=== PATIENT | male | born 1990 | race Caucasian/White ===

== ENCOUNTER 2020-08-16 10:35 | Outpatient (REF) | payer BC, SELFPAY ==
[2020-08-16 11:15] LABS: MANUAL DIFF FLAG NO
[2020-08-16 11:19] LABS: Basophils Percent Auto 0.5 % (0-2); Eosinophils Absolute Auto 0.1 X10*3/uL (0.0-0.4); Hematocrit 43.5 % (42-52); Hemoglobin 14.9 g/dl (14.0-18.0); Imm Gran Abs Auto 0.01 X10*3/uL (0.00-0.03); Imm Gran Pct Auto 0.2 % (0.0-0.4); Lymphocytes Absolute Auto 0.8 X10*3/uL (1.2-4.9); Lymphocytes Percent Auto 20.3 % (20-40); Mean Corpuscular HGB Conc 34.3 g/dl (31.0-36.0); Mean Corpuscular Hemoglobin 31.2 pg (27.0-33.0); Mean Platelet Volume 10.1 fL (9.4-12.4); Monocytes Absolute Auto 0.5 X10*3/uL (0.1-1.2); Monocytes Percent Auto 13.4 % (2-11); Neutrophils Absolute Auto 2.5 X10*3/uL (2.0-8.3); Neutrophils Percent Auto 62.6 % (45-73); Platelet Count 167 X10*3/uL (160-400); Red Blood Count 4.78 X10*6/uL (4.60-5.80); Red Cell Distribution Width 11.6 % (11.0-16.0)
[2020-08-16 11:43] LABS: Alanine Aminotransferase 30 U/L (0-40); Albumin Level 4.5 g/dL (3.5-5.0); Alkaline Phosphatase 117 U/L (39-117); Anion Gap 11 (12-20); Aspartate Amino Transferase 24 U/L (5-37); Bilirubin Total 0.5 mg/dL (0.0-1.0); Blood Urea Nitrogen 11 mg/dL (9-16); Calcium 9.1 mg/dL (8.4-10.2); Carbon Dioxide 30 mmol/L (22-29); Chloride 103 mmol/L (96-108); Cholesterol 198 mg/dL; Estimated Glomerular Filt Rate > 60; Glucose Random 94 mg/dL (60-115); Potassium 4.6 mmol/L (3.3-5.1); Sodium 139 mmol/L (135-145); Total Protein 7.1 g/dL (6.5-8.0)
[2020-08-16 12:10] LABS: Phenytoin Dilantin 21.7 ug/mL (10.0-20.0)
== END 2020-08-16 10:36 | disposition home or self-care (01) ==
LOC: HO.LAB 10:35
PROVIDERS: PCP Internal Medicine; Visit Provider Internal Medicine
DX: Z00.00 Encounter for general adult medical examination without abnormal findings (principal); G40.909 Epilepsy, unspecified, not intractable, without status epilepticus
CPT/HCPCS: 36415; 80053; 80185; 82465; 85025

== ENCOUNTER 2022-01-15 15:22 | Outpatient (REF) | payer BC, SELFPAY ==
[2022-01-15 15:31] LABS: MANUAL DIFF FLAG NO
[2022-01-15 16:13] LABS: Basophils Percent Auto 0.7 % (0-2); Eosinophils Absolute Auto 0.2 X10*3/uL (0.0-0.4); Eosinophils Percent Auto 4.4 % (0-4); Hematocrit 39.8 % (42.0-52.0); Hemoglobin 14.2 g/dl (14.0-18.0); Imm Gran Abs Auto 0.01 X10*3/uL (0.00-0.03); Imm Gran Pct Auto 0.2 % (0.0-0.4); Lymphocytes Absolute Auto 1.2 X10*3/uL (1.2-4.9); Lymphocytes Percent Auto 27.3 % (20-40); Mean Corpuscular HGB Conc 35.7 g/dl (31.0-36.0); Mean Corpuscular Hemoglobin 31.3 pg (27.0-33.0); Mean Corpuscular Volume 87.7 fL (80.0-98.0); Mean Platelet Volume 10.6 fL (9.4-12.4); Monocytes Absolute Auto 0.4 X10*3/uL (0.1-1.2); Monocytes Percent Auto 9.5 % (2-11); Neutrophils Absolute Auto 2.6 x10*3/uL (2.0-8.3); Neutrophils Percent Auto 57.9 % (45-73); Platelet Count 183 X10*3/uL (160-400); Red Blood Count 4.54 X10*6/uL (4.60-5.80); Red Cell Distribution Width 11.5 % (11.0-16.0); White Blood Count 4.5 X10*3/uL (4.8-10.8)
[2022-01-15 16:20] LABS: Alanine Aminotransferase 54 U/L (0-40); Albumin Level 4.4 g/dL (3.5-5.0); Alkaline Phosphatase 119 U/L (39-117); Anion Gap 14 (12-20); Aspartate Amino Transferase 43 U/L (5-37); Bilirubin Total 0.4 mg/dL (0.0-1.0); Blood Urea Nitrogen 11 mg/dL (9-16); Calcium 8.9 mg/dL (8.4-10.2); Carbon Dioxide 29 mmol/L (22-29); Chloride 100 mmol/L (96-108); Cholesterol 197 mg/dL; Estimated Glomerular Filt Rate > 60; Glucose Random 60 mg/dL (60-115); Potassium 4.1 mmol/L (3.3-5.1); Sodium 139 mmol/L (135-145)
[2022-01-15 16:23] LABS: Phenytoin Dilantin 15.5 ug/mL (10.0-20.0)
== END 2022-01-15 15:23 | disposition home or self-care (01) ==
LOC: HO.LAB 15:22
PROVIDERS: PCP Internal Medicine; Visit Provider Internal Medicine
DX: Z00.00 Encounter for general adult medical examination without abnormal findings (principal); Z79.899 Other long term (current) drug therapy; Z86.69 Personal history of other diseases of the nervous system and sense organs
CPT/HCPCS: 36415; 80053; 80185; 82465; 85025

== ENCOUNTER 2023-05-31 17:17 | Outpatient (REF) | payer BC, SELFPAY ==
[2023-05-31 17:28] LABS: MANUAL DIFF FLAG NO
[2023-05-31 17:48] LABS: Basophils Percent Auto 0.5 % (0-2); Eosinophils Absolute Auto 0.2 X10*3/uL (0.0-0.4); Eosinophils Percent Auto 3.3 % (0-4); Hematocrit 45.7 % (42.0-52.0); Hemoglobin 15.8 g/dl (14.0-18.0); Imm Gran Abs Auto 0.01 X10*3/uL (0.00-0.03); Imm Gran Pct Auto 0.2 % (0.0-0.4); Lymphocytes Absolute Auto 1.1 X10*3/uL (1.2-4.9); Lymphocytes Percent Auto 17.6 % (20-40); Mean Corpuscular HGB Conc 34.6 g/dl (31.0-36.0); Mean Corpuscular Hemoglobin 31.3 pg (27.0-33.0); Mean Corpuscular Volume 90.7 fL (80.0-98.0); Mean Platelet Volume 10.2 fL (9.4-12.4); Monocytes Absolute Auto 0.6 X10*3/uL (0.1-1.2); Monocytes Percent Auto 8.7 % (2-11); Neutrophils Absolute Auto 4.4 x10*3/uL (2.0-8.3); Neutrophils Percent Auto 69.7 % (45-73); Platelet Count 185 X10*3/uL (160-400); Red Blood Count 5.04 X10*6/uL (4.60-5.80); Red Cell Distribution Width 11.6 % (11.0-16.0); White Blood Count 6.4 X10*3/uL (4.8-10.8)
[2023-05-31 18:06] LABS: Phenytoin Dilantin 10.6 ug/mL (10.0-20.0)
[2023-05-31 18:10] LABS: Alanine Aminotransferase 33 U/L (0-40); Albumin Level 4.4 g/dL (3.5-5.0); Alkaline Phosphatase 112 U/L (39-117); Anion Gap 12 (12-20); Aspartate Amino Transferase 27 U/L (5-37); Bilirubin Total 0.3 mg/dL (0.0-1.0); Blood Urea Nitrogen 7 mg/dL (9-16); Calcium 9.2 mg/dL (8.4-10.2); Carbon Dioxide 29 mmol/L (22-29); Chloride 104 mmol/L (96-108); Estimated Glomerular Filt Rate > 60; Glucose Random 88 mg/dL (60-115); Sodium 141 mmol/L (135-145); Total Protein 7.4 g/dL (6.5-8.0)
== END 2023-05-31 17:18 | disposition home or self-care (01) ==
LOC: HO.LAB 17:17
PROVIDERS: PCP Internal Medicine; Visit Provider Internal Medicine
DX: R79.89 Other specified abnormal findings of blood chemistry (principal); D64.9 Anemia, unspecified; G40.909 Epilepsy, unspecified, not intractable, without status epilepticus; Z79.899 Other long term (current) drug therapy
CPT/HCPCS: 36415; 80053; 80185; 85025

== ENCOUNTER 2024-02-07 11:14 | Outpatient (REF) | payer BC, SELFPAY ==
[2024-02-07 13:29] LABS: MANUAL DIFF FLAG NO
[2024-02-07 13:44] LABS: Basophils Percent Auto 0.4 % (0-2); Eosinophils Absolute Auto 0.3 X10*3/uL (0.0-0.4); Eosinophils Percent Auto 4.8 % (0-4); Hematocrit 44.5 % (42.0-52.0); Hemoglobin 15.5 g/dl (14.0-18.0); Imm Gran Abs Auto 0.02 X10*3/uL (0.00-0.03); Imm Gran Pct Auto 0.3 % (0.0-0.4); Lymphocytes Absolute Auto 1.1 X10*3/uL (1.2-4.9); Lymphocytes Percent Auto 15.4 % (20-40); Mean Corpuscular HGB Conc 34.8 g/dl (31.0-36.0); Mean Corpuscular Hemoglobin 31.4 pg (27.0-33.0); Mean Corpuscular Volume 90.1 fL (80.0-98.0); Mean Platelet Volume 10.6 fL (9.4-12.4); Monocytes Absolute Auto 0.4 X10*3/uL (0.1-1.2); Monocytes Percent Auto 6.4 % (2-11); Neutrophils Percent Auto 72.7 % (45-73); Platelet Count 199 X10*3/uL (160-400); Red Blood Count 4.94 X10*6/uL (4.60-5.80); Red Cell Distribution Width 11.1 % (11.0-16.0); White Blood Count 6.8 X10*3/uL (4.8-10.8)
[2024-02-07 14:11] LABS: Alanine Aminotransferase 38 U/L (0-40); Albumin Level 4.1 g/dL (3.5-5.0); Alkaline Phosphatase 108 U/L (39-117); Anion Gap 12 (12-20); Aspartate Amino Transferase 31 U/L (5-37); Bilirubin Total 0.5 mg/dL (0.0-1.0); Blood Urea Nitrogen 11 mg/dL (9-16); Calcium 9.4 mg/dL (8.4-10.2); Carbon Dioxide 27 mmol/L (22-29); Chloride 104 mmol/L (96-108); Estimated Glomerular Filt Rate > 60; Glucose Random 92 mg/dL (60-115); Potassium 4.2 mmol/L (3.3-5.1); Sodium 139 mmol/L (135-145); Total Protein 7.4 g/dL (6.5-8.0)
[2024-02-07 14:12] LABS: Phenytoin Dilantin 12.7 ug/mL (10.0-20.0)
== END 2024-02-07 11:15 | disposition home or self-care (01) ==
LOC: HO.10HDL 11:14
PROVIDERS: Visit Provider Internal Medicine
DX: K52.89 Other specified noninfective gastroenteritis and colitis (principal); R19.7 Diarrhea, unspecified; R56.9 Unspecified convulsions
CPT/HCPCS: 36415; 80053; 80185; 85025

== ENCOUNTER 2024-02-08 13:41 | Outpatient (REF) | payer BC, SELFPAY ==
[2024-02-08 16:25] LABS: Adenovirus F 40/41 Not Detected (Not Detect.); Astrovirus Not Detected (Not Detect.); Campylobacter Not Detected (Not Detect.); Cryptosporidium Not Detected (Not Detect.); Cyclospora cayetanensis Not Detected (Not Detect.); E. coli EAEC Not Detected (Not Detect.); E. coli EPEC Not Detected (Not Detect.); E. coli ETEC Not Detected (Not Detect.); E. coli STEC Not Detected (Not Detect.); Entamoeba histolytica Not Detected (Not Detect.); Giardia lamblia Not Detected (Not Detect.); Plesiomonas shigelloides Not Detected (Not Detect.); Rotavirus A Not Detected (Not Detect.); Salmonella Not Detected (Not Detect.); Sapovirus Not Detected (Not Detect.); Shigella sp./EIEC Not Detected (Not Detect.); Vibrio Not Detected (Not Detect.); Vibrio Cholerae Not Detected (Not Detect.); Yersinia enterocolitica Not Detected (Not Detect.)
[2024-02-10 12:17] LABS: Norovirus Stool PCR NOT DETECTED
== END 2024-02-08 13:42 | disposition home or self-care (01) ==
LOC: HO.LNP 13:41
PROVIDERS: Visit Provider Internal Medicine
DX: R19.7 Diarrhea, unspecified (principal); R56.9 Unspecified convulsions
CPT/HCPCS: 87507

== ENCOUNTER 2024-04-18 15:26 | Outpatient (REF) | payer BC, SELFPAY ==
--- OUTSIDE RECORDS SUMMARY | 2024-04-18 15:29 | XMS_ITS | Continuity of Care Document ---
Author Organization [facility] ter Address [address] [place] [id number]- Care Team Providers Care Natural Resource Officer Name Role Phone Not on Staff, PCP Primary Care Physician Unavail able Encounter [facility] – [place] Date(s): 04/06/24 - 04/07/[address] [address]- Encounter Diagnosis Seizure disorder(Final) - 04/07/24 Confusion(Final) - 04/07/24 Discharge Disposition: A-D/C Home Attending Physician: Shahriar Byrne MD Admitting Physician: Vladimir Rivas MD Referring Physician: Not on Staff, Referring MD Encounter Type: Disch Obv Allergies, Adverse Reactions, Alerts No Known Allergies Immunizations Given and Recorded Vaccine Date Status Refusal Reason tetanus/diphtheria/pertussis, acel(Tdap) 02/24/13 Given Medications Dilantin Infatabs 50 mg oral tablet, chewable 150 mg, 3, tablet, By Mouth, 2 times a day, # 180 tablet, 0 Refills Start Date: 05/15/08 Stop Date: 06/14/08 Status: Ordered Quantity: 180.0 Unit: tablet Repeat number: 1 Ibuprofen 600 mg, By Mouth, 3 times a day, prn pain with food or milk/ no other NSAIDS, Refills 0, Acute, 05/31/19 4:11:00 PM EST Start Date: 05/31/19 Status: Ordered Repeat number: 1 levETIRAcetam 750 mg oral tablet 1 tablet = 750 mg, By Mouth, 2 times a day, # 180 tablet, 0 Refills, Maintenance, 04/07/24 1:12:00 AM EST, Tablet, Partial fill upon patient request if the prescription is for a schedule II opioid drug. Start Date: 04/07/24 Status: Ordered Quantity: 180.0 Unit: tablet Repeat number: 1 phenytoin 100 mg oral capsule, extended release 3 capsule = 300 mg, By Mouth, Daily at bedtime, # 90 capsule, 0 Refills, Maintenance, 04/07/24 1:11:00 AM EST, CR Capsule, Partial fill upon patient request if the prescription is for a schedule II opioid drug. Start Date: 04/07/24 Status: Ordered Quantity: 90.0 Unit: capsule Repeat number: 1 Problem List Condition Confirmation Course Effective Dates Status Health St atus Informant Localization-relate d epilepsy Confirmed Stable Active Underweight Confirmed Active Results Radiology Reports * Exam Date Time Procedure Performing Provider Status 04/06/24 8:59 PM Chest 2 Views Frontal and Lat Bev Hernandez; Love (Verified) Notes: (Chest 2 Views Frontal and Lat) Reason For Exam: seizures;Other: RESULT: Chest 2 Views Frontal and Lat Chest 2 Views Frontal and Lat Reason: Other:; seizures; Clinical Question(s): Pneumonia; Order Comment: COMPARISON: None. FINDINGS: LINES AND TUBES: None. LUNGS AND PLEURA: Clear lungs. Normal pulmonary vascularity. No pleural effusion. No pneumothorax. HEART, MEDIASTINUM AND PARISH: Heart is normal in size. Normal mediastinal and hilar contour. BONES AND SOFT TISSUES: No acute abnormality. IMPRESSION: No acute abnormality. WSN: [id number] Ordering Physician: Wai Quinn Dictated By: Pierre Dawn MD Dictated Date/Time: 04/06/24 10:10 p Reviewed By: Pierer Dawn MD Signed By: Pierre Dawn MD Signed Date/Time: 04/06/24 10:10 pm Transcribed By: LEONARDO Transcribed Date/Time: 04/06/24 10:10 pm * Exam Date Time Procedure Performing Provider Status 04/06/24 6:[address] Cervical Spine W/O Contrast Aminata Judd; Love (Verified) Notes: (CT Cervical Spine W/O Contrast) Reason For Exam: Neck trauma, dangerous injury mechanism;Trauma RESULT: CT Cervical Spine W/O Contrast CT Head/Brain W/O Contrast, CT Cervical Spine W/O Contrast INDICATION: Reason: Trauma; Clinical Question(s): Hematoma; Order Comment: TECHNIQUE: Noncontrast head CT using axial technique was reconstructed in axial and coronal planes.Noncontrast spiral CT through the cervical spine was formatted in 3 planes. Automatic tube modulation was used for the cervical spine and iterative dose reconstruction was used for both the head and cervical spine to optimize scan parameters and image quality. CTDIvol Body: 10.86 mGy, DLP Body: 509 mGy*cm. CTDIvol Head: 46.31 mGy, DLP Head: 834 mGy*cm. COMPARISON: 08/28/2022 FINDINGS: Food Handler View Findings, Lines and Tubes: None. BRAIN AND EXTRA-AXIAL SPACES: No parenchymal hemorrhage, midline shift, or mass effect. Guerra-white matter differentiation is wellpreserved. No acute infarct. Ventricles, sulci, and basilar cisterns are normal. No white matter lesions. No subarachnoid hemorrhage. No subdural or epidural collection. CALVARIUM, SKULL BASE, AND SOFT TISSUES: No fractures or suspicious bony lesions. Extensive maxillary sinus mucosal thickening with bilateral air-fluid levels. Dorsal thickening andmucous retention cysts in the left sphenoid sinus. Mastoid air cells are clear. Visualized orbits and globes are intact. The extracranial soft tissues are unremarkable. CERVICAL SPINE: No fracture. No acute osseous abnormalities. Normal alignment. No locked or perched facet. Intervertebral disc spaces and vertebral body heightsare preserved. OTHER BONES: No acute abnormality. CERVICAL SOFT TISSUES AND LUNG APICES: Normal soft tissues. Visualized lung apices are clear. IMPRESSION: No acute abnormality of the head or cervical spine. WSN: [id number] Ordering Physician: Wai Quinn Dictated By: Elfego Acosta MD Dictated Date/Time: 04/06/24 6:39 pm Reviewed By: Elfego Acosta MD Signed By: Elfego Acosta MD Signed Date/Time: 04/06/24 6:39 pm Transcribed By: LEONARDO Transcribed Date/Time: 04/06/24 6:34 pm * Exam Date Time Procedure Performing Provider Status 04/06/24 6:[address] Head/Brain W/O Contrast Lashon Judd; Auth (Verified) Notes: (CT Head/Brain W/O Contrast) Reason For Exam: Trauma RESULT: CT Head/Brain W/O Contrast CT Head/Brain W/O Contrast, CT Cervical Spine W/O Contrast INDICATION: Reason: Trauma; Clinical Question(s): Hematoma; Order Comment: TECHNIQUE: Noncontrast head CT using axial technique was reconstructed in axial and coronal planes.Noncontrast spiral CT through the cervical spine was formatted in 3 planes. Automatic tube modulation was used for the cervical spine and iterative dose reconstruction was used for both the head and cervical spine to optimize scan parameters and image quality. CTDIvol Body: 10.86 mGy, DLP Body: 509 mGy*cm. CTDIvol Head: 46.31 mGy, DLP Head: 834 mGy*cm. COMPARISON: 08/28/2022 FINDINGS: Food Handler View Findings, Lines and Tubes: None. BRAIN AND EXTRA-AXIAL SPACES: No parenchymal hemorrhage, midline shift, or mass effect. Guerra-white matter differentiation is wellpreserved. No acute infarct. Ventricles, sulci, and basilar cisterns are normal. No white matter lesions. No subarachnoid hemorrhage. No subdural or epidural collection. CALVARIUM, SKULL BASE, AND SOFT TISSUES: No fractures or suspicious bony lesions. Extensive maxillary sinus mucosal thickening with bilateral air-fluid levels. Dorsal thickening andmucous retention cysts in the left sphenoid sinus. Mastoid air cells are clear. Visualized orbits and globes are intact. The extracranial soft tissues are unremarkable. CERVICAL SPINE: No fracture. No acute osseous abnormalities. Normal alignment. No locked or perched facet. Intervertebral disc spaces and vertebral body heightsare preserved. OTHER BONES: No acute abnormality. CERVICAL SOFT TISSUES AND LUNG APICES: Normal soft tissues. Visualized lung apices are clear. IMPRESSION: No acute abnormality of the head or cervical spine. WSN: [id number] Ordering Physician: Wai Quinn Dictated By: Elfego Acosta MD Dictated Date/Time: 04/06/24 6:39 pm Reviewed By: Elfego Acosta MD Signed By: Elfego Acosta MD Signed Date/Time: 04/06/24 6:39 pm Transcribed By: LEONARDO Transcribed Date/Time: 04/06/24 6:34 pm Vital Signs Most recent to oldest [Reference Range]: 1 2 3 Height 181 cm (04/07/24 2:51 PM) 181 cm (04/07/24 10:11 AM) 181 cm (04/07/24 6:46 AM) Weight 60 kg (04/07/24 1:21 AM) Oxygen Saturation [94-100 %] 99 % (04/07/24 2:51 PM) 100 % (04/07/24 10:11 AM) 100 % (04/07/24 6:46 AM) Pulse Rate [55-90 bpm] 91 bpm *H* (04/07/24 2:51 PM) 66 bpm (04/07/24 10:11 AM) 58 bpm (04/07/24 6:46 AM) Body Mass Index [18.5-24.99 kg/m2] 18.31 kg/m2 *L* (04/07/24 1:21 AM) Blood Pressure [90-138/55-84 mm Hg] 126/71mm Hg (04/07/24 2:51 PM) 123/74mm Hg (04/07/24 10:11 AM) 125/76mm Hg (04/07/24 6:46 AM) Respiratory Rate [16-30 br/min] 16 br/min (04/07/24 2:51 PM) 16 br/min (04/07/24 12:20 PM) 19 br/min (04/07/24 10:11 AM) Temperature [96.8-100.4 DegF] 98.5 DegF (04/07/24 2:51 PM) 97.9 DegF (04/07/24 10:11 AM) 98.0 DegF (04/07/24 6:46 AM) Mode of Delivery (Oxygen) Room air (04/07/24 2:51 PM) Room air (04/07/24 10:11 AM) Room air (04/07/24 6:46 AM) Blood pressure sites Arm, right (04/07/24 2:51 PM) Arm, right (04/07/24 10:11 AM) Arm, right (04/07/24 6:46 AM) Temperature Route Oral (04/07/24 2:51 PM) Oral (04/07/24 10:11 AM) Oral (04/07/24 6:46 AM) Dry Weight 60 kg (04/07/24 1:21 AM) Weight Obtained Via Bed scale (04/07/24 1:21 AM) Dry Weight Obtained Via Bed scale (04/07/24 1:21 AM) Social History Social History Type Response Smoking Status Never (less than 100 in lifetime) entered on: 04/07/24 Sex Sex Representation Male (finding) Admission evaluation note * Shahriar Byrne MD: PERFORM Event Display: Admission Note Authored Date: [id number] Patient: ??PRESTON FRAGA ? Age:??33 Years?Sex:??Male?:??1990?? Chief Complaint/Reason for Consultation Seizure History of Present Illness 33 M PMH epilepsy presents for a breakthrough seizure. Per history provided by patient and family members, he was at his baseline mentation on 04/03, was home by himself?? on 04/04. When family went to visit him on 04/05, he was found altered with saliva and blood on his pillow. Patient denies recollection of events leading up to this incident. He denies headaches, cp, sob, palpitations, abdominal pain, nausea, vomiting, fevers or chills. Denies recent illnesses, diarrhea, dysuria or cough. He denies numbness/tingling, or weakness of extremities. He denies speech or swallowing difficulties at this time. On presentation, he was afebrile and hemodynamically stable. Per ER notes, he was minimally responsive at the time of arrival however he is currently at this neurologic baseline Dilantin and keppra levels were noted to be low, and patient reports being non compliant with medications. Review of Systems Negative except for the above. Objective Vital Signs?? Temperature: 97.9 DegF (04/07/24 10:11:00) Temperature Route: Oral (04/07/24 10:11:00) Pulse Rate: 66 bpm (04/07/24 10:11:00) Respiratory Rate: 16 br/min (04/07/24 12:20:00) Systolic Blood Pressure: 123 mm Hg (04/07/24 10:11:00) Diastolic Blood Pressure: 74 mm Hg (04/07/24 10:11:00) Blood pressure sites: Arm, right (04/07/24 10:11:00) Mean Arterial Pressure: 90 mm Hg (04/07/24 10:11:00) Pulse Pressure: 49 mm Hg (04/07/24 10:11:00) Oxygen Saturation: 100 % (04/07/24 10:11:00) Mode of Delivery (Oxygen): Room air (04/07/24 10:11:00) Early Warning Score: 2 (04/07/24 13:30:46) ? Intake/Output? No Data Available ? Anne Coma Scale [place] Coma Score: 15 (04/07/24 07:00:00) Motor Response-Adult: Obeys commands (04/07/24 07:00:00) Response Eye Opening: Spontaneously (04/07/24 07:00:00) Verbal Response-Adult: Oriented and converses (04/07/24 07:00:00) ? Mobility & Ambulation Level Mobility & Ambulation Level Ambulatory devices needed: None (04/07/24) ? Physical Exam Constitutional: Alert, in no distress. Mental Status: Oriented to person, place and time. Head: Normocephalic. Eyes: Pupils are equal, round and reactive to light. Extraocular muscles intact. Ear, Nose and Throat: Oropharynx clear, mucous membranes moist. Ears and nose without masses, lesions or deformities. Trachea midline. Neck: Supple, Full range of motion. Respiratory: Clear to auscultation. No wheezing, rales or rhonchi. Cardiovascular: S1 S2 regular. No murmurs, rubs or gallops. Gastrointestinal: Abdomen soft, non-tender, non-distended. Normal bowel sounds. No pulsatile mass. No hepatosplenomegaly. Genitourinary: No costovertebral angle tenderness. Neurologic: Cranial nerves II-XII grossly intact. No focal neurological deficits. Flexor plantar response. Moves all extremities spontaneously. Sensation intact bilaterally. Skin: No rashes or lesions. No petechiae or purpura.?? Musculoskeletal: No cyanosis or clubbing. No gross deformities. Normal range of motion. Heme/Lymphatics/Immun: Palpation of neck reveals no swelling or tenderness of neck nodes. Palpationof groin reveals no swelling or tenderness of groin nodes. Psychiatric: Normal mood and affect Assessment/Plan Diagnoses ? Seizure disorder (G40.909):?? Confusion (R41.0):?? U tox negative, no ethanol detected in serum. No infectious symptoms reported CT head and cervical spine are negative for acute abnormalities. Keppra and dilantin levels low, patient reports non compliance with medications He is back to neurologic baseline now, no focal neurologic deficits noted Restrat keppra and dilantin at home doses, discussed with neurology, can be discharged with outpatient follow up with patient's neurologist at [place]. ? Order Date/Time Order Action Order Name Order Detail 04/07/2024 14:17 Order Discharge Prescriptions ePrescribed, 04/07/24 14:17:00 EST 04/07/2024 13:30 Order Glucose POC (GLUCOSE POC) Routine, 04/07/24 13:29:00 EST, LAB 04/07/2024 09:46 Cancel Phenytoin 100 mg ER Capsule (Dilantin Capsule) 300 mg, By Mouth, Daily at bedtime 04/07/2024 09:46 Order Phenytoin 100 mg ER Capsule (Dilantin Capsule) 300 mg, By Mouth, Daily at bedtime 04/07/2024 09:45 Cancel Phenytoin 50 mg Chewable Tablet (Dilantin Tablet) 150 mg, By Mouth, 2 times a day 04/07/2024 09:37 Order Phenytoin 100 mg ER Capsule (Dilantin Capsule) 300 mg, By Mouth, Daily at bedtime 04/07/2024 09:36 Order Levetiracetam 250 mg Tablet (levETIRAcetam 750 mg oral tablet) 750 mg, tablet, By Mouth, 2 times a day 04/07/2024 09:35 Discontinue NPO No Exceptions, Start: now, Progress Diet: Per RN Stroke Swallow Screening Protocol, When: bowel sounds present, awake and alert, 04/07/24 0:12:00 EST 04/07/2024 09:34 Order Regular Diet Start: now, 04/07/24 9:34:00 EST 04/07/2024 09:32 Order Phenytoin 50 mg Chewable Tablet (Dilantin Tablet) 300 mg, By Mouth, Daily at bedtime 04/07/2024 07:46 Order Change Attending[facility] 04/07/24 7:46:00 EST 04/07/2024 07:18 Order Consult Neurology (Adult) [id number] Until Problem Resolved, Consult Type Seizure/Epilepsy, Reason: Breakthrough seizure, 04/07/24 7:18:00 EST ? Estimated Discharge Date ??04/07/24 ?? Important Psychosocial and Contextual Factors?? Important Psychosocial and Contextual factors -- No patient assets and stressors documented during this encounter ?? Justification for Hospitalization Breakthrough seizure ?? I certify that this patient requires hospitalization, there is a likelihood of a positive outcome, and that their placement is age appropriate. ??I have reviewed the Nursing Assessment, Admission Home Medication Assessment, and the Initial Evaluation of Risk to Self/Others. ?? Histories Allergies Allergies ?(Active and Proposed Allergies Only) NKA? (Severity: Unknown severity, Onset: Unknown) No Known Medication Allergies? (Severity: Unknown severity, Onset: Unknown) ? Past Medical History/Problem List Active Problems(2) Localization-related epilepsy Underweight ? Past Surgical History No surgery history documented. ? Social History Alcohol Details:??Use: Current. ??Frequency: 3-5 times per week. ??Type: Beer, Wine. Substance Abuse Details:??Use: Current. ??Type: Marijuana. ??Other: occas. Tobacco Details:??Use: Never (less than 100 in lifetime). ? Family History No Family History documented. ? Medications Home Medications Ibuprofen?600?Milligram?By Mouth?3 times a day?prn pain with food or milk/ no other NSAIDS levETIRAcetam (levETIRAcetam 750 mg oral tablet)?1?tab(s)?750?Milligram?By Mouth?2 times a day Phenytoin (Dilantin Infatabs 50 mg oral tablet, chewable)?150?Milligram?3?tab(s)?By Mouth?twice a day?for 30?Days Phenytoin (phenytoin 100 mg oral capsule, extended release)?3?capsule?300?Milligram?By Mouth?Daily at bedtime ? Inpatient Medications Medications (18) Active SCHEDULED: (5) Insulin Lispro 100 units/mL Inj (Insulin LISPRO Sliding Scale) ??2-10 units, Subcutaneous Injection, Every 6 hours Levetiracetam 250 mg Tablet (levETIRAcetam 750 mg oral tablet) ??750 mg, By Mouth, 2 times a day NaCl 0.9% Flush 3ml (NaCL 0.9% Flush) ??3 mL, IV Push, Every 8 hours Phenytoin 100 mg ER Capsule (Dilantin Capsule) ??300 mg, By Mouth, Daily at bedtime Phenytoin 50 mg Chewable Tablet (Dilantin Tablet) ??150 mg, By Mouth, 2 times a day CONTINUOUS: (0) PRN: (13) Acetaminophen 325 mg Tablet (Acetaminophen Tablet) ??650 mg, By Mouth, Every 4 hours Dextromethorphan-Guaifenesin 20 mg-200 mg/10 mL Liqu UD (Robitussin DM Liquid) ??10 mL, By Mouth, Every 4 hours Dextrose Inj Syringe (Dextrose 50% Inj Syringe (25Gm)) ??12.5 Gm, IV Push Slowly, Every 20 minutes Dextrose Inj Syringe (Dextrose 50% Inj Syringe (25Gm)) ??25 Gm, IV Push Slowly, Every 15 minutes Docusate Sodium 100 mg Capsule (Docusate Sodium Capsule) ??100 mg 1 capsule, By Mouth, 2 times a day Glucagon 1 mg Inj (Glucagon Inj) ??1 mg, Intramuscular, Once Glucose 40% Gel (15 Gm) (Glucose Gel) ??15 Gm, By Mouth, Every 20 minutes Glucose 40% Gel (15 Gm) (Glucose Gel) ??30 Gm, By Mouth, Every 20 minutes Melatonin 3 mg Tablet (Melatonin Tablet) ??3 mg, By Mouth, Daily at bedtime NaCl 0.9% Flush 3ml (NaCL 0.9% Flush) ??3 mL, IV Push, Every 8 hours Polyethylene Glycol 17 Gm Powder (MiraLax Powder) ??17 Gm 1 pack/packet, By Mouth, Daily Senna Tablet ??8.6 mg 1 tablet, By Mouth, 2 times a day Simethicone 80 mg Chewable Tablet (Simethicone Tablet) ??80 mg, Chew, 3 times a day ? Durable Medical Equipment Ambulatory devices needed: None (04/07/24) ? Results Recent Labs BLOOD COUNT & DIFF WBC 10.1 k/mm3 ()?? 04/06/2024 15:50 RBC 4.67 m/mm3 (Low)?? 04/06/2024 15:50 Hgb 15.0 Gm/dL ()?? 04/06/2024 15:50 Hct 42.0 % ()?? 04/06/2024 15:50 MCV 89.9 femtoliters ()?? 04/06/2024 15:50 MCH 32.1 pg ()?? 04/06/2024 15:50 MCHC 35.7 Gm/dL ()?? 04/06/2024 15:50 Platelet Count 205 k/mm3 ()?? 04/06/2024 15:50 RDW-SD 38.3 femtoliters ()?? 04/06/2024 15:50 MPV 10.6 femtoliters ()?? 04/06/2024 15:50 Nucleated RBC (Automated) 0.0 #/100 WBC'S ()?? 04/06/2024 15:50 Abs. NRBC 0.0 k/mm3 ()?? 04/06/2024 15:50 Abs. Neut 7.9 k/mm3 (High)?? 04/06/2024 15:50 Abs. Lymph 1.4 k/mm3 ()?? 04/06/2024 15:50 Abs. [place] 0.8 k/mm3 ()?? 04/06/2024 15:50 Abs. Eo 0.0 k/mm3 ()?? 04/06/2024 15:50 Abs. Baso 0.0 k/mm3 ()?? 04/06/2024 15:50 Neut % 77.5 % (High)?? 04/06/2024 15:50 Lymph % 13.4 % (Low)?? 04/06/2024 15:50 [place] % 8.2 % ()?? 04/06/2024 15:50 Eos % 0.3 % ()?? 04/06/2024 15:50 Baso % 0.3 % ()?? 04/06/2024 15:50 Imm Gran 0.3 % ()?? 04/06/2024 15:50 Abs. Imm Gran 0.0 k/mm3 ()?? 04/06/2024 15:50 ?? CARDIAC CK, Total 483 units/L (High)?? 04/06/2024 18:39 ?? CHEM GENERAL Sodium 142 mmol/L ()?? 04/06/2024 18:39 Potassium 3.8 mmol/L ()?? 04/06/2024 18:39 Chloride 102 mmol/L ()?? 04/06/2024 18:39 Bicarbonate Level 27 mmol/L ()?? 04/06/2024 18:39 Anion Gap 13 ()?? 04/06/2024 18:39 Glucose Level 91 mg/dL ()?? 04/06/2024 18:39 Glucose, POC 128 mg/dL (High)?? 04/07/2024 13:29 BUN 12 mg/dL ()?? 04/06/2024 18:39 Creatinine-Blood 0.77 mg/dL ()?? 04/06/2024 18:39 Estimated GFR Creatinine 120 ML/MIN/1.73 M2 ()?? 04/06/2024 18:39 Calcium 9.2 mg/dL ()?? 04/06/2024 18:39 Calcium, Ionized pH Corrected 1.23 mmol/L ()?? 04/06/2024 18:39 Magnesium 2.3 mg/dL ()?? 04/06/2024 18:39 Protein, Total 7.2 Gm/dL ()?? 04/06/2024 18:39 Albumin 4.3 Gm/dL ()?? 04/06/2024 18:39 AG Ratio 1.5 ()?? 04/06/2024 18:39 Alkaline Phosphatase 126 units/L ()?? 04/06/2024 18:39 Lipase 31 units/L ()?? 04/06/2024 15:50 AST (SGOT) 36 units/L ()?? 04/06/2024 18:39 ALT (SGPT) 63 units/L (High)?? 04/06/2024 18:39 Bilirubin, Total 0.3 mg/dL ()?? 04/06/2024 18:39 Lactate 1.4 mmol/L ()?? 04/06/2024 15:50 C-Reactive Protein 4.1 mg/dL (High)?? 04/06/2024 18:39 ?? ENDOCRINE/TUMOR MARKER TSH 2.29 uIU/mL ()?? 04/06/2024 18:39 ?? HEME OTHER Sed Rate 15 mm/hr ()?? 04/06/2024 15:50 Hold Blue Top SPECIMEN DISCARDED AFTER 4 HOURS. ()?? 04/06/2024 15:50 ?? TOXICOLOGY/TDM Ethanol, Serum or Plasma NONE DETECTED mg/dL ()?? 04/06/2024 18:39 Dilantin Level 3.6 mg/L (Low)?? 04/06/2024 15:50 Salicylate Level <0.3 mg/dL (Low)?? 04/06/2024 18:39 Barbiturate Screen, Urine NONE DETECTED ()?? 04/06/2024 21:50 Cannabinoid Screen, Urine NONE DETECTED ()?? 04/06/2024 21:50 Cocaine Metabolite Screen, Urine NONE DETECTED ()?? 04/06/2024 21:50 Benzodiazepine Screen, Urine NONE DETECTED ()?? 04/06/2024 21:50 Amphetamine Screen, Urine NONE DETECTED ()?? 04/06/2024 21:50 Opiate Screen, Urine NONE DETECTED ()?? 04/06/2024 21:50 Levetiracetam Level 2.50 mg/L ()?? 04/06/2024 18:39 ?? UA/URINALYSIS Appear/Color, Urine YELLOW ()?? 04/06/2024 21:50 Specific [place], Urine 1.026 ()?? 04/06/2024 21:50 pH, Urine 6.5 ()?? 04/06/2024 21:50 Albumin, Urine 1+ (Abnormal)?? 04/06/2024 21:50 Glucose, Urine NEGATIVE ()?? 04/06/2024 21:50 Ketones, Urine NEGATIVE ()?? 04/06/2024 21:50 Bilirubin, Urine NEGATIVE ()?? 04/06/2024 21:50 Hemoglobin, Urine NEGATIVE ()?? 04/06/2024 21:50 Nitrite, Urine NEGATIVE ()?? 04/06/2024 21:50 Leukocyte, Urine NEGATIVE ()?? 04/06/2024 21:50 Urobilinogen NORMAL mg/dL ()?? 04/06/2024 21:50 WBC's, Urine 2 /HPF ()?? 04/06/2024 21:50 RBC's, Urine 2 /HPF ()?? 04/06/2024 21:50 Bacteria SLIGHT HPF (Abnormal)?? 04/06/2024 21:50 Squamous Epith <1 /HPF ()?? 04/06/2024 21:50 Hyaline Cast 1 LPF ()?? 04/06/2024 21:50 Mucus SLIGHT /LPF ()?? 04/06/2024 21:50 Hold Urine Culture Testing available 48 hours from time of collection. ()?? 04/06/2024 21:50 ?? URINE OTHER Est Creatinine Clearance 113.64 mL/min ()?? 04/07/2024 03:22 ?? VIROLOGY Adenovirus by PCR NEGATIVE ()?? 04/06/2024 19:07 Coronavirus 229E by PCR (not COVID-19) NEGATIVE ()?? 04/06/2024 19:07 Coronavirus HKU1 by PCR (not COVID-19) NEGATIVE ()?? 04/06/2024 19:07 Coronavirus NL63 by PCR (not COVID-19) NEGATIVE ()?? 04/06/2024 19:07 Coronavirus OC43 by PCR (not COVID-19) NEGATIVE ()?? 04/06/2024 19:07 Human Metapneumovirus by PCR NEGATIVE ()?? 04/06/2024 19:07 Rhinovirus/Enterovirus by PCR NEGATIVE ()?? 04/06/2024 19:07 Influenza A by PCR NEGATIVE ()?? 04/06/2024 19:07 Influenza B by PCR NEGATIVE ()?? 04/06/2024 19:07 Parainfluenza 1 by PCR NEGATIVE ()?? 04/06/2024 19:07 Parainfluenza 2 by PCR NEGATIVE ()?? 04/06/2024 19:07 Parainfluenza 3 by PCR NEGATIVE ()?? 04/06/2024 19:07 Parainfluenza 4 by PCR NEGATIVE ()?? 04/06/2024 19:07 RSV by PCR NEGATIVE ()?? 04/06/2024 19:07 Bordetella Pertussis by PCR NEGATIVE ()?? 04/06/2024 19:07 Chlamydophila Pneumoniae by PCR NEGATIVE ()?? 04/06/2024 19:07 Mycoplasma Pneumoniae by PCR NEGATIVE ()?? 04/06/2024 19:07 COVID-19 (SARS-CoV-2) by PCR NEGATIVE ()?? 04/06/2024 19:07 Bordetella Parapertussis by PCR NEGATIVE ()?? 04/06/2024 19:07 ? Urinalysis Albumin, Urine: 1+ Abnormal (21:50) Appear/Color, Urine: YELLOW (21:50) Bacteria: SLIGHT Abnormal (21:50) Bilirubin, Urine: NEGATIVE (21:50) Est Creatinine Clearance: 113.64 mL/min (03:22) Glucose, Urine: NEGATIVE (21:50) Hemoglobin, Urine: NEGATIVE (21:50) Hold Urine Culture: Testing available 48 hours from time of collection. (21:50) Hyaline Cast: 1 LPF (21:50) Ketones, Urine: NEGATIVE (21:50) Leukocyte, Urine: NEGATIVE (21:50) Mucus: SLIGHT (21:50) Nitrite, Urine: NEGATIVE (21:50) pH, Urine: 6.5 (21:50) RBC's, Urine: 2 /HPF (21:50) Specific [place], Urine: 1.026 (21:50) Squamous Epith: <1 (21:50) Urobilinogen: NORMAL (21:50) WBC's, Urine: 2 /HPF (21:50) ?? Microbiology ?? Respiratory Pathogen PCR with COVID-19?? Completed?? Source: Nasal Body Site: Nose Collected Dt/Tm: 04/06/2024 17:06 Last Updated Dt/Tm: 04/06/2024 21:48 ? Cardiology Labs CK, Total:??483 units/L??High (04/06/24 18:39:00) ?? Blood Gases?? No qualifying data available. ? EKG study * Event Display: ECG 12-Lead Authored Date: Please click on pdf link to open report * Event Display: ECG 12-Lead Authored Date: [id number] Ventricular Rate: 59 BPM Atrial Rate: 59 BPM P-R Interval: 120 ms QRS Duration: 76 ms Q-T Interval: 402 ms QTC Calculation(Bazett): 397 ms P [place]: 25 degrees R [place]: 16 degrees T [place]: 28 degrees Sinus bradycardia with sinus arrhythmia Otherwise normal ECG When compared with ECG of 18-Aug-2016 13:48, No significant change was found Confirmed by JOSHUA VILLANUEVA MD ([id number]) on 04/07/2024 9:43:30 AM [place] * Christelle Howe: PERFORM Event Display: [facility] Authored Date: [id number] Patient: ??PRESTON FRAGA ? Age:??33 Years?Sex:??Male?:??1990? [facility] ?? Date and Time: 04/07/2024? 17:46 o'clock ?? To whom it may concern: ?? Mr. Preston Fraga??was hospitalized at [facility] from??04/06/2024 until??04/07/2024. Please reach out with any questions or concerns. ?? Christelle Gamboa PA-C [facility] Medicine ?? * Cory Olmos: PERFORM, SIGN, VERIFY, SIGN, MODIFY, SIGN Event Display: [facility] Authored Date: [id number] Patient: PRESTON FRAGA Age: 33 years Sex: Male : 1990 Associated Diagnoses: None Author: Cory Olmos Findings Discharge instructions explained to patient and patient verbalized understanding. Prescriptions andfollow up instructions reviewed, and patient verbalized understanding. Importance of taking medications as prescribed explained to patient, patient verbalized understanding. IV access removed. Patient denies pain. All belongings gathered and taken with patient. Patient left unit via ambulation to main lobby. Discharge Information Case Management Discharge Plan : Case Management Discharge Plan Data 04/07/2024 17:09 EST Discharge Level of Care at Discharge Home/Senior Living/Foster Care * Digna Richard RN: PERFORM, SIGN, VERIFY, MODIFY, SIGN Event Display: Progress Note Hospital Authored Date: Patient: PRESTON FRAGA Age: 33 years Sex: Male : 1990 Associated Diagnoses: None Author: Digna Richard RN Findings Narrative/Incidental Pt arrived to [facility] via stretcher around 0100, ambulated to bed with stand by assist. Appears tired, unsteady on his feet, wobbly feet and generally weak. Pt A+Ox2-3, disoriented on the date, knows itsDecember, doesn't know what day it is. Pt calm, soft voice. Pt denies dizziness or lightheadedness.Denies any pain, nausea, vomiting, SOB or cough. Telemetry: SR with HR in 60's. Little diaphoretic.POC glucose 93. Initiated CIWA and at 7. Reports consuming alcoholic drinks 3-4 times/week, 3-4 drinks in one occasion. Pt denies dysuria. Reports last BM 2 days ago, ?. Passed bedside swallow test. Pt's girlfriend at bedside, states pt doesn't take his anti-seizure mily as prescribed, but takes all pills at bedtime at once (if he takes his meds). Pt oriented to call joseph system and bed mechanics. Seizure precautions in place. Bed alarm on.. Consult note * Karl VARGAS, Jhon Cortez: PERFORM Event Display: Consultation Note Authored Date: Patient: ??PRESTON FRAGA ? Age:??33 Years?Sex:??Male?:??1990?? History of Present Illness Patient is a 33-year-old male with history of??epilepsy on??phenytoin and levetiracetam??followed by Dr. Vasquez, neurologist in??[place]??who presented with??breakthrough seizures.?? Levetiracetam and phenytoin??levels for both??low at??3.3 and??3.6 respectively. ?? CT head??and cervical spine 04/06/2024??No acute abnormality of the head or cervical spine. Review of Systems as per [facility] Physical Exam Vitals & Measurements T:??97.9?F?? HR:??66??(Peripheral)?? RR:??19?? BP:??123/74?? SpO2:??100%?? HT:??181??cm?? WT:??60??kg?? BMI:??18.31?? Constitutional: Sitting comfortably in the room in no acute distress. Good nutritional status. Appears stated age.?? Psych: Calm and cooperative. Maintains good eye contact. Good insight Skin: Warm and dry. No rashes, lesions or ulcers Eyes: [address] conjunctiva, no ptosis. Sclera anicteric. PERRLA CV: RRR Resp: Lungs clear to auscultation bilaterally?? MSK: No swelling or tenderness of the joints, neck supple. No clubbing, cyanosis or edema of the extremities ?? Neurologic Examination ?? Mental Status: Alert with fluent and appropriate language. No neglect or left/right confusion. Attention, registration and recall intact. Fund of knowledge good.? Cranial Nerves:Visual [place] full. EOMI with no nystagmus or diplopia. Facial sensation intact. Face activates symmetrically and tongue protrudes midline. Hearing is intact to conversation. No weakness in?? trapezius muscles.? Motor: Normal muscle bulk and tone throughout. No adventitious movements. No pronator drift or orbiting. Symmetric rapid movements. Strength 5/5 to manual muscle testing. ?? Reflexes: 2+ at bilateral biceps, triceps, brachioradialis, patella and ankle. Plantar response flexor bilaterally ?? Sensory: Sensation intact to light touch. ?? Coordination: Finger to nose??testing within normal limits ?? Gait:??deferred ?? Assessment/Plan Assessment:??Medically refractory epilepsy on??phenytoin and levetiracetam.??Reviewing??yesterday'snotes??and talking to patient's family??he appears much??improved??at this time.??Given??the low phenytoin and levetiracetam levels??I suspect??noncompliance??as the etiology for the breakthrough seizures.??Would recommend continuing on??the current doses of levetiracetam??and phenytoin.??Per patient??he is on??750 mg??levetiracetam twice daily??as well as??phenytoin 200 mg in the morning and 300mg in the evening.??Neurologic testing needed at this time.??Would recommend follow-up with ??Christina of??[place] neurology.??Neurology signing off. ? Problem List/Past Medical History Ongoing Localization-related epilepsy Underweight Procedure/Surgical History No qualifying data available. Home Medications Ibuprofen: 600 mg, By Mouth, 3 times a day, prn pain with food or milk/ no other NSAIDS levETIRAcetam: 750 mg = 1 tablet, By Mouth, 2 times a day Phenytoin: 150 mg = 3 tablet, By Mouth, 2 times a day Phenytoin: 300 mg = 3 capsule, By Mouth, Daily at bedtime Allergies NKA No Known Medication Allergies Social History Alcohol Use: Current. Frequency: 3-5 times per week. Type: Beer, Wine. Substance Abuse Use: Current. Type: Marijuana. Other: occas. Tobacco Use: Never (less than 100 in lifetime). Family History No family history recorded. Lab Results Test Name Test Result Date/Time WBC 10.1 k/mm3 04/06/2024 15:50 EST RBC 4.67 m/mm3 04/06/2024 15:50 EST Hgb 15.0 Gm/dL 04/06/2024 15:50 EST Hct 42.0 % 04/06/2024 15:50 EST MCV 89.9 femtoliters 04/06/2024 15:50 EST MCH 32.1 pg 04/06/2024 15:50 EST MCHC 35.7 Gm/dL 04/06/2024 15:50 EST Platelet Count 205 k/mm3 04/06/2024 15:50 EST RDW-SD 38.3 femtoliters 04/06/2024 15:50 EST MPV 10.6 femtoliters 04/06/2024 15:50 EST Nucleated RBC (Automated) 0.0 #/100 WBC'S 04/06/2024 15:50 EST Abs. NRBC 0.0 k/mm3 04/06/2024 15:50 EST Abs. Neut 7.9 k/mm3 04/06/2024 15:50 EST Abs. Lymph 1.4 k/mm3 04/06/2024 15:50 EST Abs. [place]vert 0.8 k/mm3 04/06/2024 15:50 EST Abs. Eo 0.0 k/mm3 04/06/2024 15:50 EST Abs. Baso 0.0 k/mm3 04/06/2024 15:50 EST Neut % 77.5 % 04/06/2024 15:50 EST Lymph % 13.4 % 04/06/2024 15:50 EST Calvert % 8.2 % 04/06/2024 15:50 EST Eos % 0.3 % 04/06/2024 15:50 EST Baso % 0.3 % 04/06/2024 15:50 EST Imm Gran 0.3 % 04/06/2024 15:50 EST Abs. Imm Gran 0.0 k/mm3 04/06/2024 15:50 EST Sodium 142 mmol/L 04/06/2024 18:39 EST Potassium 3.8 mmol/L 04/06/2024 18:39 EST Chloride 102 mmol/L 04/06/2024 18:39 EST Bicarbonate Level 27 mmol/L 04/06/2024 18:39 EST Anion Gap 13 04/06/2024 18:39 EST Glucose Level 91 mg/dL 04/06/2024 18:39 EST BUN 12 mg/dL 04/06/2024 18:39 EST Creatinine-Blood 0.77 mg/dL 04/06/2024 18:39 EST Estimated GFR Creatinine 120 ML/MIN/1.73 M2 04/06/2024 18:39 EST Calcium 9.2 mg/dL 04/06/2024 18:39 EST Calcium, Ionized pH Corrected 1.23 mmol/L 04/06/2024 18:39 EST Magnesium 2.3 mg/dL 04/06/2024 18:39 EST Protein, Total 7.2 Gm/dL 04/06/2024 18:39 EST Albumin 4.3 Gm/dL 04/06/2024 18:39 EST AG Ratio 1.5 04/06/2024 18:39 EST Alkaline Phosphatase 126 units/L 04/06/2024 18:39 EST AST (SGOT) 36 units/L 04/06/2024 18:39 EST ALT (SGPT) 63 units/L 04/06/2024 18:39 EST Bilirubin, Total 0.3 mg/dL 04/06/2024 18:39 EST C-Reactive Protein 4.1 mg/dL 04/06/2024 18:39 EST Ethanol, Serum or Plasma NONE DETECTED 04/06/2024 18:39 EST Salicylate Level <0.3 mg/dL 04/06/2024 18:39 EST Barbiturate Screen, Urine NONE DETECTED 04/06/2024 21:50 EST Cannabinoid Screen, Urine NONE DETECTED 04/06/2024 21:50 EST Cocaine Metabolite Screen, Urine NONE DETECTED 04/06/2024 21:50 EST Benzodiazepine Screen, Urine NONE DETECTED 04/06/2024 21:50 EST Amphetamine Screen, Urine NONE DETECTED 04/06/2024 21:50 EST Opiate Screen, Urine NONE DETECTED 04/06/2024 21:50 EST Levetiracetam Level 2.50 mg/L 04/06/2024 18:39 EST Note * Cory Olmos: PERFORM Event Display: Discharge/Transfer Note Hospital Authored Date: [id number] Nursing Discharge Note Entered On: 04/07/2024 17:18 EST Performed On: 04/07/2024 17:09 EST by Cory Olmos Nursing Discharge Note 2 Discharge Time : 04/07/2024 17:09 EST Discharge Level of Care at Discharge : Home/Senior Living/Foster Care Patient Left Unit Via : Ambulatory Patient Accompanied Off Unit with : Responsible adult DC Instructions Provided & Signed by Pt : Yes Patient Understands D/C Instructions : Yes Patient Instructions Discharge Signed : Yes Did Pt have Specialty Bed or Wound Vac : No Cory Olmos - 04/07/2024 17:18 EST * Caty VARGAS, Shahriar: PERFORM Event Display: Discharge/Transfer Note Hospital Authored Date: [id number] Patient: ??PRESTON FRAGA ? Age:??33 Years?Sex:??Male?:??1990?? Patient Information Discharge Location: B Primary Care Physician: Not on Staff, PCP Admit Date/Time: 04/06/2024 13:13 Discharge Disposition Discharge Disposition: Home: No Services Discharge Diagnosis Seizure disorder (G40.909) Confusion (R41.0) _ Discharge Medications Ibuprofen?600?Milligram?By Mouth?3 times a day?prn pain with food or milk/ no other NSAIDS levETIRAcetam (levETIRAcetam 750 mg oral tablet)?1?tab(s)?750?Milligram?By Mouth?2 times a day Phenytoin (Dilantin Infatabs 50 mg oral tablet, chewable)?150?Milligram?3?tab(s)?By Mouth?twice a day?for 30?Days Phenytoin (phenytoin 100 mg oral capsule, extended release)?3?capsule?300?Milligram?By Mouth?Daily at bedtime ? Allergies Allergies ?(Active and Proposed Allergies Only) NKA? (Severity: Unknown severity, Onset: Unknown) No Known Medication Allergies? (Severity: Unknown severity, Onset: Unknown) ? PCP Follow-Up/Heads-Up F/u for breakthrough seizure, non compliance with meds. Objective Assessment and Plan Seizure disorder (G40.909):?? Confusion (R41.0):?? U tox negative, no ethanol detected in serum. No infectious symptoms reported CT head and cervical spine are negative for acute abnormalities. Keppra and dilantin levels low, patient reports non compliance with medications He is back to neurologic baseline now, no focal neurologic deficits noted Restrat keppra and dilantin at home doses, discussed with neurology, can be discharged with outpatient follow up with patient's neurologist at [place]. ? Vital Signs?? Temperature: 98.5 DegF (04/07/24 14:51:00) Temperature Route: Oral (04/07/24 14:51:00) Pulse Rate:??91 bpm??High (04/07/24 14:51:00) Respiratory Rate: 16 br/min (04/07/24 14:51:00) Systolic Blood Pressure: 126 mm Hg (04/07/24 14:51:00) Diastolic Blood Pressure: 71 mm Hg (04/07/24 14:51:00) Blood pressure sites: Arm, right (04/07/24 14:51:00) Mean Arterial Pressure: 89 mm Hg (04/07/24 14:51:00) Pulse Pressure: 55 mm Hg (04/07/24 14:51:00) Oxygen Saturation: 99 % (04/07/24 14:51:00) Mode of Delivery (Oxygen): Room air (04/07/24 14:51:00) Early Warning Score: 0 (04/07/24 14:55:21) ? Mobility & Ambulation Level Mobility & Ambulation Level Ambulatory devices needed: None (04/07/24) ?? Therapeutic Activity Therapeutic Activities/Mobility/Balance?? No qualifying data available. ?? . Physical Exam Constitutional: Alert, in no distress. Mental Status: Oriented to person, place and time. Head: Normocephalic. Eyes: Pupils are equal, round and reactive to light. Extraocular muscles intact. Ear, Nose and Throat: Oropharynx clear, mucous membranes moist. Ears and nose without masses, lesions or deformities. Trachea midline. Neck: Supple, Full range of motion. Respiratory: Clear to auscultation. No wheezing, rales or rhonchi. Cardiovascular: S1 S2 regular. No murmurs, rubs or gallops. Gastrointestinal: Abdomen soft, non-tender, non-distended. Normal bowel sounds. No pulsatile mass. No hepatosplenomegaly. Genitourinary: No costovertebral angle tenderness. Neurologic: Cranial nerves II-XII grossly intact. No focal neurological deficits. Flexor plantar response. Moves all extremities spontaneously. Sensation intact bilaterally. Skin: No rashes or lesions. No petechiae or purpura.?? Musculoskeletal: No cyanosis or clubbing. No gross deformities. Normal range of motion. Heme/Lymphatics/Immun: Palpation of neck reveals no swelling or tenderness of neck nodes. Palpationof groin reveals no swelling or tenderness of groin nodes. Psychiatric: Normal mood and affect [facility] Neurology Pending Results Add On Lab Order ordered on 04/06/2024 Add On Lab Order ordered on 04/06/2024 Blood Culture ordered on 04/06/2024 Blood Culture #2 ordered on 04/06/2024 Fentanyl Level ordered on 04/06/2024 Follow-Up Appointments Added Follow Up ?Time Frame ?Comments Not on Staff, PCP?1 week: call to discuss follow up visit Patient Instructions Please take seizure medications as prescribed without missing doses Follow up with your outpatient neurologist at [place] after discharge Post Discharge Care Discharge ?04/07/24 14:17:00 EST ?Order Comment:?? Discharge Prescriptions ?ePrescribed, 04/07/24 14:17:00 EST ?Order Comment:?? Home Health Face to Face ^HomeHealthFTF Results Discharge Labs BLOOD COUNT & DIFF WBC 10.1 k/mm3 ()?? 04/06/2024 15:50 RBC 4.67 m/mm3 (Low)?? 04/06/2024 15:50 Hgb 15.0 Gm/dL ()?? 04/06/2024 15:50 Hct 42.0 % ()?? 04/06/2024 15:50 MCV 89.9 femtoliters ()?? 04/06/2024 15:50 MCH 32.1 pg ()?? 04/06/2024 15:50 MCHC 35.7 Gm/dL ()?? 04/06/2024 15:50 Platelet Count 205 k/mm3 ()?? 04/06/2024 15:50 RDW-SD 38.3 femtoliters ()?? 04/06/2024 15:50 MPV 10.6 femtoliters ()?? 04/06/2024 15:50 Nucleated RBC (Automated) 0.0 #/100 WBC'S ()?? 04/06/2024 15:50 Abs. NRBC 0.0 k/mm3 ()?? 04/06/2024 15:50 Abs. Neut 7.9 k/mm3 (High)?? 04/06/2024 15:50 Abs. Lymph 1.4 k/mm3 ()?? 04/06/2024 15:50 Abs. [place]vert 0.8 k/mm3 ()?? 04/06/2024 15:50 Abs. Eo 0.0 k/mm3 ()?? 04/06/2024 15:50 Abs. Baso 0.0 k/mm3 ()?? 04/06/2024 15:50 Neut % 77.5 % (High)?? 04/06/2024 15:50 Lymph % 13.4 % (Low)?? 04/06/2024 15:50 Calvert % 8.2 % ()?? 04/06/2024 15:50 Eos % 0.3 % ()?? 04/06/2024 15:50 Baso % 0.3 % ()?? 04/06/2024 15:50 Imm Gran 0.3 % ()?? 04/06/2024 15:50 Abs. Imm Gran 0.0 k/mm3 ()?? 04/06/2024 15:50 ?? CARDIAC CK, Total 483 units/L (High)?? 04/06/2024 18:39 ? CHEM GENERAL Sodium 142 mmol/L ()?? 04/06/2024 18:39 Potassium 3.8 mmol/L ()?? 04/06/2024 18:39 Chloride 102 mmol/L ()?? 04/06/2024 18:39 Bicarbonate Level 27 mmol/L ()?? 04/06/2024 18:39 Anion Gap 13 ()?? 04/06/2024 18:39 Glucose Level 91 mg/dL ()?? 04/06/2024 18:39 Glucose, POC 128 mg/dL (High)?? 04/07/2024 13:29 BUN 12 mg/dL ()?? 04/06/2024 18:39 Creatinine-Blood 0.77 mg/dL ()?? 04/06/2024 18:39 Estimated GFR Creatinine 120 ML/MIN/1.73 M2 ()?? 04/06/2024 18:39 Calcium 9.2 mg/dL ()?? 04/06/2024 18:39 Calcium, Ionized pH Corrected 1.23 mmol/L ()?? 04/06/2024 18:39 Magnesium 2.3 mg/dL ()?? 04/06/2024 18:39 Protein, Total 7.2 Gm/dL ()?? 04/06/2024 18:39 Albumin 4.3 Gm/dL ()?? 04/06/2024 18:39 AG Ratio 1.5 ()?? 04/06/2024 18:39 Alkaline Phosphatase 126 units/L ()?? 04/06/2024 18:39 Lipase 31 units/L ()?? 04/06/2024 15:50 AST (SGOT) 36 units/L ()?? 04/06/2024 18:39 ALT (SGPT) 63 units/L (High)?? 04/06/2024 18:39 Bilirubin, Total 0.3 mg/dL ()?? 04/06/2024 18:39 Lactate 1.4 mmol/L ()?? 04/06/2024 15:50 C-Reactive Protein 4.1 mg/dL (High)?? 04/06/2024 18:39 ? ENDOCRINE/TUMOR MARKER TSH 2.29 uIU/mL ()?? 04/06/2024 18:39 ? HEME OTHER Sed Rate 15 mm/hr ()?? 04/06/2024 15:50 Hold Blue Top SPECIMEN DISCARDED AFTER 4 HOURS. ()?? 04/06/2024 15:50 ?? MISC. CHEMISTRY Hold Green Top SPECIMEN DISCARDED AFTER 1 WEEK ()?? 04/06/2024 18:39 ? TOXICOLOGY/TDM Ethanol, Serum or Plasma NONE DETECTED mg/dL ()?? 04/06/2024 18:39 Dilantin Level 3.6 mg/L (Low)?? 04/06/2024 15:50 Salicylate Level <0.3 mg/dL (Low)?? 04/06/2024 18:39 Barbiturate Screen, Urine NONE DETECTED ()?? 04/06/2024 21:50 Cannabinoid Screen, Urine NONE DETECTED ()?? 04/06/2024 21:50 Cocaine Metabolite Screen, Urine NONE DETECTED ()?? 04/06/2024 21:50 Benzodiazepine Screen, Urine NONE DETECTED ()?? 04/06/2024 21:50 Amphetamine Screen, Urine NONE DETECTED ()?? 04/06/2024 21:50 Opiate Screen, Urine NONE DETECTED ()?? 04/06/2024 21:50 Levetiracetam Level 2.50 mg/L ()?? 04/06/2024 18:39 ?? UA/URINALYSIS Appear/Color, Urine YELLOW ()?? 04/06/2024 21:50 Specific [place], Urine 1.026 ()?? 04/06/2024 21:50 pH, Urine 6.5 ()?? 04/06/2024 21:50 Albumin, Urine 1+ (Abnormal)?? 04/06/2024 21:50 Glucose, Urine NEGATIVE ()?? 04/06/2024 21:50 Ketones, Urine NEGATIVE ()?? 04/06/2024 21:50 Bilirubin, Urine NEGATIVE ()?? 04/06/2024 21:50 Hemoglobin, Urine NEGATIVE ()?? 04/06/2024 21:50 Nitrite, Urine NEGATIVE ()?? 04/06/2024 21:50 Leukocyte, Urine NEGATIVE ()?? 04/06/2024 21:50 Urobilinogen NORMAL mg/dL ()?? 04/06/2024 21:50 WBC's, Urine 2 /HPF ()?? 04/06/2024 21:50 RBC's, Urine 2 /HPF ()?? 04/06/2024 21:50 Bacteria SLIGHT HPF (Abnormal)?? 04/06/2024 21:50 Squamous Epith <1 /HPF ()?? 04/06/2024 21:50 Hyaline Cast 1 LPF ()?? 04/06/2024 21:50 Mucus SLIGHT /LPF ()?? 04/06/2024 21:50 Hold Urine Culture Testing available 48 hours from time of collection. ()?? 04/06/2024 21:50 ?? URINE OTHER Est Creatinine Clearance 113.64 mL/min ()?? 04/07/2024 03:22 ? VIROLOGY Adenovirus by PCR NEGATIVE ()?? 04/06/2024 19:07 Coronavirus 229E by PCR (not COVID-19) NEGATIVE ()?? 04/06/2024 19:07 Coronavirus HKU1 by PCR (not COVID-19) NEGATIVE ()?? 04/06/2024 19:07 Coronavirus NL63 by PCR (not COVID-19) NEGATIVE ()?? 04/06/2024 19:07 Coronavirus OC43 by PCR (not COVID-19) NEGATIVE ()?? 04/06/2024 19:07 Human Metapneumovirus by PCR NEGATIVE ()?? 04/06/2024 19:07 Rhinovirus/Enterovirus by PCR NEGATIVE ()?? 04/06/2024 19:07 Influenza A by PCR NEGATIVE ()?? 04/06/2024 19:07 Influenza B by PCR NEGATIVE ()?? 04/06/2024 19:07 Parainfluenza 1 by PCR NEGATIVE ()?? 04/06/2024 19:07 Parainfluenza 2 by PCR NEGATIVE ()?? 04/06/2024 19:07 Parainfluenza 3 by PCR NEGATIVE ()?? 04/06/2024 19:07 Parainfluenza 4 by PCR NEGATIVE ()?? 04/06/2024 19:07 RSV by PCR NEGATIVE ()?? 04/06/2024 19:07 Bordetella Pertussis by PCR NEGATIVE ()?? 04/06/2024 19:07 Chlamydophila Pneumoniae by PCR NEGATIVE ()?? 04/06/2024 19:07 Mycoplasma Pneumoniae by PCR NEGATIVE ()?? 04/06/2024 19:07 COVID-19 (SARS-CoV-2) by PCR NEGATIVE ()?? 04/06/2024 19:07 Bordetella Parapertussis by PCR NEGATIVE ()?? 04/06/2024 19:07 ? Blood Glucose Trend Glucose Level: 91 mg/dL (04/06/24 18:39:00) Glucose Level: 95 mg/dL (04/06/24 15:50:00) Glucose, POC:??128 mg/dL??High (04/07/24 13:29:00) Glucose, POC: 81 mg/dL (04/07/24 06:50:00) Glucose, POC: 93 mg/dL (04/07/24 01:51:00) ? Microbiology ?? Respiratory Pathogen PCR with COVID-19?? Completed?? Source: Nasal Body Site: Nose Collected Dt/Tm: 04/06/2024 17:06 Last Updated Dt/Tm: 04/06/2024 21:48 ? 40??minutes spent on discharge * Cory Olmos: PERFORM Event Display: Patient Education/Instruction Authored Date: Inpatient Adult Discharge Instructions. [address] [address] Name: PRESTON FRAGA : 1990?? Visit: 04/06/2024 13:13?? Current Date: 04/07/2024 15:29 ?? Account: [id number]?? Inpatient Adult Discharge Instructions We would like to thank you for allowing us to assist you with your healthcare needs. The following includes patient education materials and information regarding your injury/illness. Our entire staffstrives to provide an excellent experience for our patients and their families. PLEASE ENSURE YOU FOLLOW-UP PER THE INSTRUCTIONS BELOW! ?? YOUR OPINION IS IMPORTANT TO US! Please complete the survey you may receive by mail or email. Your feedback will be used to make improvements to the healthcare experiences of our patients and their families. Surveys are administered by [employer] ?? If further treatment with your primary care physician or another doctor is recommended, it is important for you to keep the appointment. Call your primary care physician or return to the Emergency Department immediately if your condition worsens, fails to improve, or new symptoms develop. If you need to find a doctor, you can call [facility] myeasydocs for a referral at [phone] or toll free at [phone]) or log in to [email or web address].. ?? [facility], in keeping with [facility] guidance, no longer requires face masks for staff, patientsor visitors in most situations. Similiar to time spent indoors at other locations, there is the chance that you were exposed to repiratory viruses during your time with us (such as flu or COVID-19). If you develop symptoms concerning for a viral respiratory infection, please seek testing (and treatment if indicated) from your medical provider or home test kit. ?? You can view and manage your care through the patient portal or by using a health care vivian of your choosing. [employer] is a website that allows you to securely view your medical information including your hospital discharge summary, office visit summaries, medications and follow-up visits. You can also request appointments, renew medications, and request access to your medical information using a health care vivian of your choosing, or just ask a question. You can enroll at [email or web address] or register during your next office visit. You have been discharged from [facility], Patient Care Unit: D3B??. If you have any questions regarding these instructions, including results of studies pending, afteryou leave, please call us and we will be happy to assist you 01/11. [facility] Your Care Team Attending Physician Shahriar Byrne MD?? Consulting Providers Shahriar Byrne MD?? Discharging Providers Shahriar Byrne MD Reason for Your Visit seizures, AMS?? Tests Performed Below is a partial list of the tests performed during your hospitalization. You may have had other tests and procedures not included in this list. Please discuss all test results with your provider. Amphetamine Urine Screen Barbiturate Urine Screen Benzodiazepine Urine Screen C-REACTIVE PROTEIN Calcium Ionized Cannabinoid Urine Screen CBC w/ Differential Cocaine Urine Screen Comprehensive Metabolic Panel CPK Total Only Dilantin Level ETHANOL GLUCOSE POC Hold Blue Top Tube HOLD GREEN TUBE Lactate Level Levetiracetam Level Lipase Magnesium Level Opiate Screen Urine Respiratory Pathogen PCR with COVID-19 SALICYLATE SEDIMENTATION RATE,AUTOMATED TSH with T4 Reflex (Adults Only) Urinalysis w/hold for Urine Culture CT Cervical Spine W/O Contrast CT Head/Brain W/O Contrast XR Chest 2 Views Frontal and Lat Add On Lab Order?? Amphetamine Urine Screen?? Barbiturate Urine Screen?? Benzodiazepine Urine Screen?? Blood Culture?? Blood Culture #2?? C Reactive Protein (C-REACTIVE PROTEIN)?? CBC w/ Differential?? CPK Total Only?? CT Cervical Spine W/O Contrast?? CT Head/Brain W/O Contrast?? Cannabinoid Urine Screen?? Cocaine Urine Screen?? Comprehensive Metabolic Panel?? Ethanol Level (ETHANOL)?? Fentanyl Level (FENTANYL)?? Glucose POC?? Hold Blue Top Tube?? Hold Green Top Tube (HOLD GREEN TUBE)?? Ionized Calcium (Calcium Ionized)?? Lactic Acid Level (Lactate Level)?? Levetiracetam Level?? Lipase?? Magnesium Level?? Opiate Screen Urine?? Phenytoin Total Level (Dilantin Level)?? Respiratory Pathogen PCR with COVID-19?? Salicylate Level (SALICYLATE)?? Sedimentation Rate (SEDIMENTATION RATE,AUTOMATED)?? TSH with T4 Reflex (Adults Only)?? Urinalysis w/hold for Urine Culture?? Chest 2 Views Frontal and Lat (XR Chest 2 Views Frontal and Lat)?? Primary Care Provider Not on Staff, PCP?? Advance Directive Health Care Proxy on File No Discharge Vitals Temperature: 98.5 DegF Height: 181 cm Pulse Rate:??91 bpm??High Weight: 60 kg Respiratory Rate: 16 br/min Body Mass Index:??18.31 kg/m2??Low Systolic Blood Pressure: 126 mm Hg Body surface area: 1.74 Diastolic Blood Pressure: 71 mm Hg ?? Oxygen Saturation: 99 % ?? Studies Pending All studies ordered during this hospital stay have been completed unless listed below. Please discuss all pending results with your provider listed above in these instructions. ?? Add On Lab Order?? Blood Culture?? Blood Culture #2?? Fentanyl Level (FENTANYL)?? What to do next Instructions From Your Doctor Please take seizure medications as prescribed without missing doses Follow up with your outpatient neurologist at [facility] after discharge ?? Orders? 04/07/24 14:17:00 EST?? Prescriptions??, ??04/07/24 14:17:00 EST?? You Need to Schedule the Following Appointments Follow Up with??Not on Staff, PCP When:??Within 1 week: call to discuss follow up visit Discharge Medications PRESTON FRAGA :1990 Visit Date:04/06/2024 Medications: Please continue your medications until treatment is completed or stopped by your provider. Medications not listed below should be discontinued. Discuss any questions related to medications with your provider. What How Much When Instructions Next Dose Unchanged Ibuprofen 600 Milligram Oral 3 times a day prn pain with food or milk/ ??no other NSAIDS ?? As needed for pain Unchanged levETIRAcetam (levETIRAcetam 750 mg oral tablet) 1 tab(s) Oral Twice a day 04/07 at 9:00 pm Unchanged Phenytoin (Dilantin Infatabs 50 mg oral tablet, chewable) 3 tab(s) Oral Twice a day Duration: 30 Days 04/07 at 9:00 pm Unchanged Phenytoin (phenytoin 100 mg oral capsule, extended release) 3 capsule Oral Daily at Bedtime 04/07 bedtime Prescription Given During Visit No new medications prescribed at time of discharge.?? Laboratory Results Below is a partial list of the most recent Laboratory test results done prior to this discharge. You may have had other tests and procedures not included in this list. Please discuss all test resultswith your provider. Est Creatinine Clearance - 113.64 mL/min (04/07/2024) Amphetamine Urine Screen (04/06/2024) ???Amphetamine Screen, Urine - NONE DETECTED Barbiturate Urine Screen (04/06/2024) ???Barbiturate Screen, Urine - NONE DETECTED Benzodiazepine Urine Screen (04/06/2024) ???Benzodiazepine Screen, Urine - NONE DETECTED C-REACTIVE PROTEIN (04/06/2024) ???C-Reactive Protein - 4.1 mg/dL Calcium Ionized (04/06/2024) ???Calcium, Ionized pH Corrected - 1.23 mmol/L Cannabinoid Urine Screen (04/06/2024) ???Cannabinoid Screen, Urine - NONE DETECTED CBC w/ Differential (04/06/2024) ???WBC - 10.1 k/mm3???RBC - 4.67 m/mm3???Hgb - 15.0 Gm/dL???Hct - 42.0 %???MCV - 89.9 femtoliters???MCH - 32.1 pg???MCHC - 35.7 Gm/dL???Platelet Count - 205 k/mm3???RDW-SD - 38.3 femtoliters???MPV - 10.6 femtoliters???Nucleated RBC (Automated) - 0.0 #/100 WBC'S???Abs. NRBC - 0.0 k/mm3???Abs. Neut -7.9 k/mm3???Abs. Lymph - 1.4 k/mm3???Abs. Calvert - 0.8 k/mm3???Abs. Eo - 0.0 k/mm3???Abs. Baso - 0.0 k/mm3???Neut % - 77.5 %???Lymph % - 13.4 %???[place] % - 8.2 %???Eos % - 0.3 %???Baso % - 0.3 %???Imm Gran - 0.3 %???Abs. Imm Gran - 0.0 k/mm3 Cocaine Urine Screen (04/06/2024) ???Cocaine Metabolite Screen, Urine - NONE DETECTED Comprehensive Metabolic Panel (04/06/2024) ???Sodium - 142 mmol/L???Potassium - 3.8 mmol/L???Chloride - 102 mmol/L???Bicarbonate Level - 27 mmol/L???Anion Gap - 13???Glucose Level - 91 mg/dL???BUN - 12 mg/dL???Creatinine-Blood - 0.77 mg/dL???Estimated GFR Creatinine - 120 ML/MIN/1.73 M2???Calcium - 9.2 mg/dL???Protein, Total - 7.2 Gm/dL???Albumin - 4.3 Gm/dL???AG Ratio - 1.5???Alkaline Phosphatase - 126 units/L???AST (SGOT) - 36 units/L???ALT (SGPT) - 63 units/L???Bilirubin, Total - 0.3 mg/dL CPK Total Only (04/06/2024) ???CK, Total - 483 units/L Dilantin Level (04/06/2024) ???Dilantin Level - 3.6 mg/L ETHANOL (04/06/2024) ???Ethanol, Serum or Plasma - NONE DETECTED GLUCOSE POC (04/07/2024) ???Glucose, POC - 128 mg/dL Hold Blue Top Tube (04/06/2024) ???Hold Blue Top - SPECIMEN DISCARDED AFTER 4 HOURS. HOLD GREEN TUBE (04/06/2024) ???Hold Green Top - SPECIMEN DISCARDED AFTER 1 WEEK Lactate Level (04/06/2024) ???Lactate - 1.4 mmol/L Levetiracetam Level (04/06/2024) ???Levetiracetam Level - 2.50 mg/L Lipase (04/06/2024) ???Lipase - 31 units/L Magnesium Level (04/06/2024) ???Magnesium - 2.3 mg/dL Opiate Screen Urine (04/06/2024) ???Opiate Screen, Urine - NONE DETECTED Respiratory Pathogen PCR with COVID-19 (04/06/2024) ???Adenovirus by PCR - NEGATIVE???Coronavirus 229E by PCR (not COVID-19) - NEGATIVE???Coronavirus HKU1 by PCR (not COVID-19) - NEGATIVE???Coronavirus NL63 by PCR (not COVID-19) - NEGATIVE???Coronavirus OC43 by PCR (not COVID-19) - NEGATIVE???Human Metapneumovirus by PCR - NEGATIVE???Rhinovirus/Enterovirus by PCR - NEGATIVE???Influenza A by PCR - NEGATIVE???Influenza B by PCR - NEGATIVE???Parainfluenza 1 by PCR - NEGATIVE???Parainfluenza 2 by PCR - NEGATIVE???Parainfluenza 3 by PCR - NEGATIVE???Parainfluenza 4 by PCR - NEGATIVE???RSV by PCR - NEGATIVE???Bordetella Pertussis by PCR - NEGATIVE??? Chlamydophila Pneumoniae by PCR - NEGATIVE???Mycoplasma Pneumoniae by PCR - NEGATIVE???COVID-19 (SARS-CoV-2) by PCR - NEGATIVE???Bordetella Parapertussis by PCR - NEGATIVE SALICYLATE (04/06/2024) ? ?Salicylate Level - <0.3 mg/dL SEDIMENTATION RATE,AUTOMATED (04/06/2024) ???Sed Rate - 15 mm/hr TSH with T4 Reflex (Adults Only) (04/06/2024) ???TSH - 2.29 uIU/mL Urinalysis w/hold for Urine Culture (04/06/2024) ???Appear/Color, Urine - YELLOW???Specific [place], Urine - 1.026???pH, Urine - 6.5???Albumin, Urine - 1+???Glucose, Urine - NEGATIVE???Ketones, Urine - NEGATIVE???Bilirubin, Urine - NEGATIVE???Hemoglobin, Urine - NEGATIVE???Nitrite, Urine - NEGATIVE???Leukocyte, Urine - NEGATIVE???Urobilinogen - NORMAL? ?WBC's, Urine - 2 /HPF? ?RBC's, Urine - 2 /HPF? ?Bacteria - SLIGHT? ?Squamous Epith - <1 /HPF???Hyaline Cast - 1 LPF???Mucus - SLIGHT???Hold Urine Culture - Testing available 48 hours from time of collection. You will be contacted within 72 hours with your results. Allergies (NKA means No Known Allergies) NKA No Known Medication Allergies Problems Active Problems??(2) Localization-related epilepsy?? Underweight?? Education Materials Below is the list of Educational Leaflet Providered with your Discharge Instructions. [employer] Patient Education - How Seizures Affect the Body?? [employer] Patient Education - Phenytoin?? Valuables and Belongings I fully understand and agree that [facility] accepts no responsibility for all my personal property including clothing, toilet articles, radios, jewelry, dentures, hearing aids, rings, money, or any other property that is in my possession or is brought to me after admission. I understand certain valuables may be placed in a hospital safe for a short period of time. I understand that the hospital is not liable for loss or damage due to accident, fire, or other natural occurrence while said property is in the safe. I accept full responsibility for any personal property that I keep with me, and will not hold the hospital responsible in case of loss or disappearance. I acknowledge that i have been encouraged to send valuables and belongings home. ?? Review of Valuable and Belonging List: With patient Date for Pt to Sign Valuables/Belongings: 04/07/24 01:44:00 ?? Other Discharge Information ? Pulmonary Rehab Status?? Pulmonary Rehab Discharge Status?? Respiratory Rate: 16 br/min ? Common Emergency Awareness Tips IS IT A STROKE? Act FAST and Check for these signs: FACE Does the face look uneven? ARM Does one arm drift down? SPEECH Does their speech sound strange? TIME Call at any sign of stroke ?? Heart Attack Signs Chest discomfort: Most heart attacks involve discomfort in the center of the chest and lasts more than a few minutes, or goes away and comes back. It can feel like uncomfortable pressure, squeezing, fullness or pain. Discomfort in upper body: Symptoms can include pain or discomfort in one or both arms, back, neck, jaw or stomach. Shortness of breath: With or without discomfort. Other signs: Breaking out in a cold sweat, nausea, or lightheaded. Remember, MINUTES DO MATTER. If you experience any of these heart attack warning signs, call to get immediate medical attention! ?? Smoking can increase your chances of developing chronic health problems and can cause harmful effects to other family members in your house. If you smoke, you are strongly encouraged to quit. Please call [facility] [employer] [facility] at [phone] or [phone] ([phone]) or log in to [email or web address] for referrals to smoking cessation programs. ?? 98 Suicide & Crisis Lifeline is available 01/11 if you or someone you know needs to find a reason to keep living. By calling 150 you'll be connected to a skilled, trained counselor at a crisis center in your area. INPATIENT DISCHARGE INSTRUCTIONS SIGNATURE TERRANCE FRAGAPRESTON Location:[facility] Registration Date and Time:04/06/2024 13:13 EST Primary Care Physician: Not on Staff, PCP Attending Physician: Caty VARGAS, Clementinejavon, I PRESTON FRAGA, have received the above patient education materials/instructions and have verbalized understanding. If ambulance or transport services are being used I further acknowledge being given a choice of service. ?? If you need to contact me, please call me at this number: . Patient/Cushion Mat Maker Name: Patient/Cushion Mat Maker Signature: Relationship to Patient: Witness Name/Signature: Date: * Cory Olmos: PERFORM Event Display: Patient Education Leaflets Authored Date: [id number] How Seizures Affect the Body ?? [id number] How Seizures Affect the Body The brain is your body???s control center. It manages everything from movement and balance to emotions and memory. When a seizure happens, some or all brain functions are affected for a short time. The brain sends signals The brain sends electrical signals all over your body. Signals sent from each part of your brain control a different body function. For instance, 1 part of your brain controls balance. Another part controls speech. A healthcare provider can record your brain signals. They use a test called an electroencephalogram (EEG). Normal EEG. ?? The brain during a seizure During a seizure, abnormal electrical signals occur in your brain. They disrupt its normal activity. The way this affects your body depends on 2 main things: ??? Where the seizure happens in your brain. For instance, a seizure in a part of your brain that controls movement (the motor cortex) might cause your arm or leg to jerk. ??? The spread of the seizure to other parts of the brain. A seizure that affects more of your brain may affect more of your body. ?? Types of seizures The types of seizures include: ??? Focal seizures. The abnormal electrical activity starts in 1 part of the brain. These used to be called partial seizures. ??? Generalized seizures. These seizures start on both sides of the brainat the same time. ??? Unknown onset. It isn't known if the seizure is focal or generalized. It may be hard to know which type until tests such as an EEG are done. ??? Focal to bilateral seizure. A sei zure starts in 1 side or part of the brain (focal). Then it spreads to both sides. Partial seizure EEG. Generalized seizure EEG. ?? Focal seizures Focal seizures come in different types. The type depends on any change in awareness. They are: ??? Focal aware. The person having a seizure is awake and aware. They may be unable to talk during the seizure. ??? Focal impaired awareness. People with this type of seizure will have short-term loss of awareness. This can be very brief (a few seconds). Or it may be much longer. This used to be known as a complex partial seizure. ??? Awareness unknown. It is not known if the person's awareness is affected or not. Focal seizures also come in types that describe movements: ??? Focal motor seizure. The focal seizure causes abnormal movements. These can include twitching, jerking, or stiffening of a body part. Or they can be things like licking lips, rubbing hands, walking, or running. ??? Focal non-motor seizure. These don't cause movements. But the person may have vision changes, thoughts, or feelings from the seizure. ?? Generalized seizures There are 2 kinds of generalized seizures: ??? Generalized motor seizure. A seizure happens on bothsides of the brain. It causes movements such as stiffening or jerking. It's also called a tonic-clonic seizure. ??? Generalized non-motor seizure. The seizure that affects awareness. It doesn't causemotor symptoms. Some people will have minor movements that repeat. These can include blinking or staring. This is also called an absence seizure. ?? Other effects of seizures on your body After a generalized motor seizure, your muscles may feel sore when you wake up. Some people bite their tongue during a seizure. Some lose control of their bladder or bowels (incontinence). You may besweating and have changes in your skin color. If you have seizures in your sleep, you may only knowbecause you feel sore when you wake up. Or you may find you had incontinence while asleep. Seizures can affect your heart rate, blood pressure, or other vital signs. These changes are often short-term (temporary). They get better after the seizure stops. During a seizure, brain cells can be injured. This can often happen with longer seizures. For these reasons, it's important to have good control of seizures. Seizures that affect your movements or awareness can pose a danger. When a seizure affects awareness, you may not be able to focus on what you're doing. You may lose control of a vehicle or heavy machinery. Motor seizures (generalized or focal) can lead to injury. With a generalized motor seizure, you canfall and be injured. The motor movements with focal or generalized seizures can cause injury if you're near something dangerous, like a hot stove or a sharp object. People with seizures that affect awareness or motor function need to take care to prevent injuries.Your ability to drive may be affected. Your driving may be limited. This is based on your provider's advice and local laws. You may need not to swim or shower alone. This is because of the risk of drowning during a seizure. Being up high, such as on a ladder, can lead to serious injury if you have a seizure. Your provider can help you learn what to do to stay safe. If you have a seizure disorder, wear a medical alert bracelet or necklace. You may also want to carry a list of your seizure medicines. This could be on paper or in your cellphone. If your disorder is unstable, include the medical management used to treat emergencies. ?? Last Reviewed Date: 2023 ?? [employer]. All rights reserved. This information is not intended as a substitute for professional medical care. Always follow your healthcare professional's instructions. ?? * Cory Olmos: PERFORM Event Display: Patient Education Leaflets Authored Date: [id number] Phenytoin ?? phenytoin Phenytoin Does this test have other names? Dilantin test ?? What is this test? This test checks the level of the seizure medicine phenytoin (Dilantin) in your blood. Phenytoin isan anticonvulsant medicine given to control seizures. ?? Why do I need this test? You may need this test if you take phenytoin. Your healthcare provider must check your blood to make sure you are getting the correct dose. Too much can be toxic. Not enough leaves your seizures uncontrolled. You may have this test more often when you first start taking the medicine and then regularly throughout treatment. You may need to repeat the test if the medicine doesn't seem to control your seizures or if any of your other prescription medicines change.? What other tests might I have along with this test? Your healthcare provider also might order other blood tests, including: ??? Complete blood count ??? Blood urea nitrogen and creatinine test to check kidney function ??? Liver function tests ??? Glucose test to measure your blood sugar because phenytoin can cause your blood sugar to rise ??? Blood tests to measure the sodium level in your blood ??? Tests for other medicine levels ??? Urinalysis ?? What do my test results mean? Test results may vary depending on your age, gender, health history, and other things. Your test results may be different depending on the lab used. They may not mean you have a problem. Ask your healthcare provider what your test results mean for you. Results are given in micrograms per milliliter (??/mL). The normal therapeutic range for children and adults is 10 to 20 ??/mL (8 to 15 ??/mL in newborns). The therapeutic range is just a guide. Yourhealthcare provider will figure out the best dose and blood level for you based in part on how wellyour seizures are controlled and how you feel. High levels of phenytoin in your blood can be toxic. ?? How is this test done? The test is done with a blood sample. A needle is used to draw blood from a vein in your arm or hand.? Does this test pose any risks? Having a blood test with a needle carries some risks. These include bleeding, infection, bruising, and feeling lightheaded. When the needle pricks your arm or hand, you may feel a slight sting or pain. Afterward, the site may be sore.? What might affect my test results? Adjusting the dosage of any other medicine or taking a new medicine???prescription or nonprescription???can affect the level of phenytoin in your blood. Tell your healthcare provider if you are taking any of these medicines: ??? Amiodarone for an irregular heartbeat ??? Chlordiazepoxide or diazepam for anxiety ??? Warfarin, a blood thinner ??? Disulfiram to treat alcohol abuse ??? Estrogens for hormone replacement ??? Aspirin and medicines with salicylates ??? Sulfonamides to treat infections ??? Tolbutamide used for diabetes management ??? Omeprazole or famotidine for ulcers ??? Isoniazid, an antibiotic ??? Methylphenidate for attention deficit hyperactivity disorders ??? Phenothiazines for nausea ??? Fluoxetine or trazodone for depression ??? Carbamazepine, primidone, or valproic acid for seizures ??? Fluconazole for yeast infections Drinking alcohol also can raise the level of phenytoin in your blood. A change in metabolism also can affect your phenytoin levels. Before taking a new prescription or an [id number] medicine, it's best to check about medicine interactions with your healthcare provider or pharmacist. ?? How do I get ready for this test? You don't need to prepare for this test. Be sure your healthcare provider knows about all medicines, herbs, vitamins, and supplements you are taking. This includes medicines that don't need a prescription and any illegal drugs you may use.? Last Reviewed Date: 2021 ?? [employer]. All rights reserved. This information is not intended as a substitute for professional medical care. Always follow your healthcare professional's instructions. ?? Patient Care team information Care Team Personnel Name: Cory Olmos Position: S RN Member Role: Primary Care Nurse Name: Not on Staff, PCP Position: S Physician (General Medicine) Member Role: PCP Care Team Related Persons Name: HARRY ÁLVAREZ Insurance Providers Guarantor name: JANELLE Health Plan Information #: 1 Payer: HMO [employer] Member Number: [id number] Policy Number: NA Group Number: [id number] Health Plan Information #: 2 Payer: [employer] Member Number: [id number] Policy Number: JANELLE Group Number: NA
[2024-04-18 18:10] LABS: Phenytoin Dilantin 18.6 ug/mL (10.0-20.0)
[2024-04-22 05:18] LABS: Levetiracetam Keppra 10.4 mcg/mL (6.0-46.0)
== END 2024-04-18 15:27 | disposition home or self-care (01) ==
LOC: HO.LAB 15:26
PROVIDERS: PCP Internal Medicine; Visit Provider Psychiatry & Neurology Neurology
DX: G40.909 Epilepsy, unspecified, not intractable, without status epilepticus (principal)
CPT/HCPCS: 36415; 80177; 80185